=== PATIENT | male | born 1965 | race Caucasian/White ===

== ENCOUNTER 2017-09-09 16:48 | Emergency (ER) | payer MEDICAID ==
[~2017-09-09] VITALS: Ht 177.8 cm; Wt 83.9 kg
[2017-09-09] MEDS ORDERED: LISINOPRIL10 MG ORAL (16:58)
[2017-09-09] MEDS ORDERED: VITAMIN D400 INTLU ORAL (16:58)
[2017-09-09] MEDS ORDERED: COMPLEX B-1001 EACH PO (16:58)
[2017-09-09] MEDS ORDERED: QUETIAPINE FUMA25 MG ORAL (16:58)
[2017-09-09] MEDS ORDERED: GENVOYA TABLET1 EACH PO (16:58)
[2017-09-09] MEDS ORDERED: Ketorolac 30mg Inj IM ONE (17:00)
[2017-09-09] MEDS ORDERED: Tetanus/Diptheria/Pertussis Vaccine 0.5ml Syr IM ONE (17:00)
[2017-09-09] MEDS ORDERED: Lidocaine 1% Plain 30 ml INJ ONE (17:00)
[2017-09-09] MEDS: Acetaminophen 500mg (ES) tab ORAL ONE ×2 (17:05→17:10)
--- NOTE | 2017-09-09 17:07 | Emergency Room Report ---
History of Present Illness General Chief Complaint: Laceration Source: Patient Present Illness HPI 51-year-old male patient presents ER complaining of laceration on palm of left hand. Reports that a glass loss out of his Knee attempted to catch it. Reports that glass vase broke in his hand. Does not know tetanus vaccination status. Reports he is left-hand dominant. Denies hitting head or loss consciousness. Denies other acute symptoms. reports history of drug addiction, states he does not want opioid medications. Allergies: Coded Allergies: No Known Allergies (Unverified , 09/09/17) Patient History Past Medical History: see triage record Reviewed Nursing Documentation: PMH: Agreed; PSxH: Agreed Nursing Documentation-PMH Hx Hypertension: Yes Review of Systems All Other Systems: negative except mentioned in HPI Physical Exam Vital Signs Date Time Temp Pulse Resp B/P (MAP) Pulse Ox O2 Delivery O2 Flow Rate FiO2 09/09/17 16:52 98.2 94 22 124/81 95 Room Air 98.2 Sp02 EP Interpretation: reviewed, normal General Appearance: well appearing, no apparent distress, alert, GCS 15, non- toxic Head: normocephalic, atraumatic Eyes: bilateral eye normal inspection, bilateral eye PERRL ENT: hearing grossly normal, normal pharynx, no angioedema, normal voice, uvula midline, moist mucus membranes Neck: full range of motion Respiratory: lungs clear, normal breath sounds, no rhonchi, no respiratory distress, no accessory muscle use, no wheezing, speaking full sentences Cardiovascular #1: regular rate, rhythm, no edema Cardiovascular #2: 2+ radial (R), 2+ radial (L) Musculoskeletal: back normal, digits/nails normal, gait/station normal, normal range of motion, non-tender, other Skin: laceration - left hand, palmar side: 2 cm linear laceration, no active bleeding, no exposed tendons, superficial, no FB visualized Procedures Laceration/Wound Repair Laceration/Wound Repair : Consent: Verbal Wound Location: upper extremity - left hand Wound's Depth, Shape: superficial Wound Length (cm): 2 Wound Explored: contaminated Irrigated w/ Saline (ccs): 20 Betadine Prep?: Yes Anesthesia: 1% Lidocaine Volume Anesthetic (ccs): 2 Wound Debrided: extensive Wound Repaired With: sutures Suture Size/Type: 5:0, other - ethilon Number of Sutures: 4 Layer Closure?: No Sterile Dressing Applied?: Yes Splint Applied?: No Sling Applied?: No Patient Tolerated: Well Complications: None Medical Decision Making PA Attestation Dr. Russo is my supervising Physician whom patient management has been discussed with. Diagnostic Impression: Primary Impression: Laceration ER Course Pt presents to ED c/o laceration on left hand. DDX considered but are not limited to laceration, abrasion, contusion, cellulitis. VITAL SIGNS are WNL, patient is afebrile ED INTERVENTIONS: Wound was cleaned and irrigated using normal saline. No FB visualized. full range of motion of fingers at MCP, DIP, PIP, patient able to make a fist. low suspicion for tendon involvement or injury. Does not require imaging at this time. Local block using Lidocaine 1%. Laceration repaired. 4 sutures placed. Wound cleaned and covered using sterile dressing and Bacitracin. Patient reports understanding and agreement to treatment plan. Keep wound clean and dry. DISCHARGE: Rx provided for Keflex Rx provided for Ibuprofen At this time pt is stable for d/c to home. Patient resting comfortably, in no acute distress, nontoxic appearing, talking without difficulty. Will provide with patient care instructions and any necessary prescriptions. Patient to take medication as instructed. Care plan and follow-up instructions provided. Patient questions asked and answered. Patient instructed to follow-up with primary care provider in 1-3 days for wound check and 7-10 days for removal of sutures ER precautions given. Patient instructed to return to ER immediately for any new or worsening of symptoms. - Please note that this Emergency Department Report was dictated using [employer] technology software, occasionally this can lead to erroneous entry secondary to interpretation by the dictation equipment. Last Vital Signs Date Time Temp Pulse Resp B/P (MAP) Pulse Ox O2 Delivery O2 Flow Rate FiO2 09/09/17 16:52 98.2 94 22 124/81 95 Room Air 98.2 Disposition: HOME, SELF-CARE Condition: Stable Scripts Cephalexin* (KEFLEX*) 500 Mg Capsule 500 MG ORAL EVERY 12 HOURS, #14 CAP 0 Refills Prov: Andres Copeland P.A. 09/09/17 Ibuprofen* (MOTRIN*) 600 Mg Tablet 600 MG ORAL Q8H PRN for For Pain, #30 TAB 0 Refills Prov: Andres Copeland P.A. 09/09/17 Patient Instructions: Laceration Care, Adult Additional Instructions: Patient instructed to follow-up with primary care provider in 1-3 days for wound check and 7-10 days for removal of sutures. Take medications as directed. Keep wound clean and dry. Patient questions asked and answered. ER precautions given, patient instructed to return to ER immediately for any new or worsening of symptoms. Andres Copeland Sep 09, 2017 17:07
[2017-09-09] MEDS ORDERED: Bacitracin Oint UD TOPIC ONE (17:34)
[2017-09-09] MEDS ORDERED: IBUPROFEN600 MG ORAL (17:35)
[2017-09-09] MEDS ORDERED: CEPHALEXIN500 MG ORAL (17:35)
[2017-09-09 17:42] VITALS: BP 124/81
== END 2017-09-09 17:42 | disposition home or self-care (01) ==
LOC: EMR 17:30
DX: S61.412A Laceration without foreign body of left hand, initial encounter (principal); W25.XXXA Contact with sharp glass, initial encounter; Y92.9 Unspecified place or not applicable; Z23 Encounter for immunization; I10 Essential (primary) hypertension
CPT/HCPCS: 12001; 90471; 90715; 96372; 99284; J1885; J2001; Z7502

== ENCOUNTER → 2018-10-17 | Emergency (ER) | payer MEDICAID ==
[~2018-10-17] VITALS: Ht 177.8 cm; Wt 81.6 kg
[~2018-10-17] MED LIST: BIKTARVY 50-201 EACH PO; CEPHALEXIN500 MG ORAL; COMPLEX B-1001 EACH PO; GENVOYA TABLET1 EACH PO; IBUPROFEN600 MG ORAL; LISINOPRIL10 MG ORAL; QUETIAPINE FUMA25 MG ORAL; VITAMIN D400 INTLU ORAL; VOLTAREN100 G1 TP
[2018-10-17 15:02] VITALS: BP 148/99
--- NOTE | 2018-10-17 15:10 | NUR ---
ED Nurse Note: Patient walked into ED c/o left hand pain. patient reports he injured his hand, the last injury occured 3 months ago. Patient is alert awake x4 ambulatory, breathing unlabored and even.
--- NOTE | 2018-10-17 15:18 | Emergency Room Report ---
History of Present Illness General Chief Complaint: Pain Source: Medical Record Present Illness HPI 52-year-old man with no significant past medical history here complaining of pain left hand for the past several months. Patient reports that he injured his left hand after falling never had any imaging done. Then he starts talking about how he had a laceration repair your urine half ago at that site and must have something to do with his pain. He reports that he also has history of neuropathy in order to take medication for it as well as ibuprofen 800. Patient reports that he wakes up every morning with a left pinky. Rating pain 10 out of 10 complaining of tingling and numbness. Patient has not seen a hand specialist. Tells me that he has a pending referral. However he demands to have x-ray. Before getting the x-ray done his service screaming being rude to staff and my supervising physician Dr. Galdamez threatening to jose the hospital as he decides that this is the fault of the hospital for during laceration repair a year and half ago and causing his problems. He then denies that he was ever given or discussed with his primary care provider or [facility] that he needs to see a hand specialist. Allergies: Coded Allergies: No Known Allergies (Unverified , 09/09/17) Patient History Past Medical History: see triage record Past Surgical History: unable to obtain Pertinent Family History: none Immunizations: UTD Reviewed Nursing Documentation: PMH: Agreed; PSxH: Agreed Nursing Documentation-PM Past Medical History: No History, Except For Hx Hypertension: Yes Review of Systems All Other Systems: negative except mentioned in HPI Physical Exam Vital Signs Date Time Temp Pulse Resp B/P (MAP) Pulse Ox O2 Delivery O2 Flow Rate FiO2 10/17/18 15:02 98.4 101 18 148/99 (115) 96 Room Air Sp02 EP Interpretation: reviewed, normal General Appearance: normal inspection, well appearing, no apparent distress Head: normocephalic, atraumatic Eyes: bilateral eye normal inspection, bilateral eye PERRL ENT: normal ENT inspection, hearing grossly normal, normal voice Neck: normal inspection, full range of motion, supple Respiratory: normal inspection, chest non-tender, lungs clear, no wheezing Cardiovascular #1: normal inspection, normal peripheral pulses, no edema, no murmur, normal capillary refill Cardiovascular #2: 2+ radial (R), 2+ radial (L) Gastrointestinal: non tender, soft Rectal: deferred Genitourinary: no CVA tenderness Musculoskeletal: normal inspection, back normal, digits/nails normal, gait/ station normal Neurologic: normal inspection, alert, oriented x3 Psychiatric: normal inspection, judgement/insight normal, memory normal Skin: no rash, palpation normal Lymphatic: normal inspection, no adenopathy Medical Decision Making PA Attestation All my diagnosis and treatment plans were reviewed ad discussed with my supervising physician Dr. Galdamez Diagnostic Impression: Primary Impression: Neuropathic arthritis ER Course 52-year-old man with no significant past medical history here complaining of pain left hand for the past several months. Patient reports that he injured his left hand after falling never had any imaging done. Then he starts talking about how he had a laceration repair your urine half ago at that site and must have something to do with his pain. He reports that he also has history of neuropathy in order to take medication for it as well as ibuprofen 800. Patient reports that he wakes up every morning with a left pinky. Rating pain 10 out of 10 complaining of tingling and numbness. Patient has not seen a hand specialist. Tells me that he has a pending referral. However he demands to have x-ray. Before getting the x-ray done his service screaming being rude to staff and my supervising physician Dr. Galdamez threatening to jose the hospital as he decides that this is the fault of the hospital for during laceration repair a year and half ago and causing his problems. He then denies that he was ever given or discussed with his primary care provider or [facility] that he needs to see a hand specialist. Ddx considered but are not limited to : Hand fracture versus neuropathic pain versus arthritis versus contusion versus strain Vital signs: are WNL, pt. is afebrile H&PE are most consistent with: Neuropathic arthritis ORDERS: Hand x-ray, Voltaren gel ED INTERVENTIONS: Finger splint DISCHARGE: At this time pt. is stable for d/c to home. Will provide printed patient care instructions, and any necessary prescriptions. Care plan and follow up instructions have been discussed with the patient prior to discharge. Patient stable at time of discharge however he left without his paperwork and before getting his x-ray done being rude and demanding MRI and speaking to hand specialist for chronic condition. Last Vital Signs Date Time Temp Pulse Resp B/P (MAP) Pulse Ox O2 Delivery O2 Flow Rate FiO2 10/17/18 15:02 98.4 101 18 148/99 (115) 96 Room Air Disposition: HOME, SELF-CARE Condition: Stable Scripts Diclofenac Sodium (VOLTAREN) 100 Gm Gel..gram. 2 GM TP TID, #100 GM Prov: Giovany Navarro 10/17/18 Patient Instructions: Neuropathic Pain Additional Instructions: Take medication as directed follow-up with your primary care provider for arthritis panel as well as referral to hand specialist at this time her condition is considered chronic and no sign of acute injury or fracture noted. Giovany Navarro Oct 17, 2018 15:17
--- NOTE | 2018-10-17 15:25 | NUR ---
ED Nurse Note: Notified Giovany RUIZ that patient requests xray to be done, per patient "Something must be in here, I feel a bump here." patient reports he got stitches done at [facility] about 1 year ago, and since then, he feels like it has not been healing properly.
--- NOTE | 2018-10-17 15:34 | NUR ---
ED Nurse Note: patient stated "I'm going to leave, nobody's taking care of me" RN explained that x-ray is ordered per Givoany RUIZ, instrumentation engineering technician will come to the patient. Patient acknowledged understanding.
--- NOTE | 2018-10-17 15:40 | NUR ---
ELOPEMENT: while Dr. Galdamez was trying to explain to the patient regarding the plan of care, patient stood up and stated "I'm going to leave, I'm going to jose you guys" patient left with ID band on, patient became very agitated and upset, unable to take the ID band out from the patient. patient left with all of his belongings.
== END | disposition home or self-care (01) ==
LOC: EMR 15:39
DX: M14.6 Charcot's joint (principal); I10 Essential (primary) hypertension; G62.9 Polyneuropathy, unspecified
CPT/HCPCS: 29130; 99283